=== PATIENT | female | born 1980 | race Caucasian/White ===

== ENCOUNTER 2018-06-21 17:16 | Emergency (ER) | payer OTHER ==
[2018-06-21] MEDS ORDERED: methylPREDNISolone ACETATE 80 MG/ML VIAL IM ONE (18:01)
[2018-06-21 18:21] VITALS: BP 133/78
[2018-06-21 22:11] LABS: APPEARANCE,URINE CLEAR (CLEAR); COLOR,URINE YELLOW (YELLOW); OCCULT BLOOD,URINE NEGATIVE (NEGATIVE); UROBILINOGEN URINE 0.2 Eu (0.2-1.0)
[2018-06-22 11:37] LABS: CANNABINOIDS NEGATIVE ng/mL (< 50); METHYLENEDIOXYMETHAMPHETAMINE NEGATIVE ng/mL (<500)
--- NOTE | 2018-07-08 16:01 | ED Physician Documentation ---
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 Denies loss of bowel or bladder, denies injury, fall or heavy lifting.) - ROS CONST: no problems EYES/ENT: none CVS/RESP: none GI/: none MS/SKIN/LYMPH: none NEURO/PSYCH: denies: headache - PAST HX Past History: none Allergies/Adverse Reactions: Allergies Allergy/AdvReac Type Severity Reaction Status Date / Time clindamycin Allergy Verified 06/21/18 17:34 ketorolac [From Toradol] Allergy Verified 06/21/18 17:34 Penicillins Allergy Verified 06/21/18 17:34 tramadol Allergy Verified 06/21/18 17:34 Home Medications: Ambulatory Orders Medication Instructions Recorded Alprazolam [Xanax] 0.25 mg PO 06/21/18 Methylprednisolone [Medrol] 4 mg PO DAILY #1 tab.ds.pk 06/21/18 - SOCIAL HX Smoking History: cigarettes - FAMILY HX Family History: No - VITAL SIGNS Vital Signs: Vital Signs Temp Pulse Resp BP Pulse Ox 98.1 F 90 16 133/78 98 06/21/18 17:21 06/21/18 18:19 06/21/18 18:19 06/21/18 18:19 06/21/18 18:19 - REVIEWED ASSESSMENTS Nursing Assessment Reviewed: Yes Vitals Reviewed: Yes ED Results Lab/Radiology - Lab Results Lab Results: Lab Results 06/21/18 06/21/18 06/21/18 17:40 17:40 17:40 Urine Color Yellow (YELLOW) Urine Appearance Clear (CLEAR) Urine pH 7.0 (5.0 - 8.0) Ur Specific [place] 1.020 (1.010-1.030) Urine Protein Negative mg/dL mg/dL (NEGATIVE) Urine Ketones Negative mg/dL mg/dL (NEGATIVE) Urine Occult Blood Negative (NEGATIVE) Urine Nitrite Negative (NEGATIVE) Urine Bilirubin Negative (NEGATIVE) Urine Urobilinogen 0.2 Eu Eu (0.2-1.0) Ur Leukocyte Esterase Negative (NEGATIVE) Urine Glucose Negative mg/dL mg/dL (NEGATIVE) Opiates Screen Negative ng/mL ng/mL (<300) Oxycodone Screen Negative ng/mL ng/mL (<100) Methadone Screen Negative ng/mL ng/mL (<200) Ur Barbiturates Screen Negative ng.mL ng.mL (<200) Tricyclic Antidepress Negative ng/mL ng/mL (<300) Phencyclidine Screen Non negative ng/mL H ng/mL (< 25) Amphetamines Screen Negative ng/mL ng/mL (<500) Amphetamines >1000 ng/mL H ng/mL (<100) Methamphetamine >1000 ng/mL H ng/mL (<100) U Methamphetamines Scrn Non negative ng/mL H ng/mL (<500) MDMA Negative ng/mL ng/mL Negative ng/mL ng/mL (<50) (<500) Methylphenidate Negative ng/mL ng/mL (<50) Phentermine Negative ng/mL ng/mL (<50) Alprazolam 71 ng/mL H ng/mL (<20) Hydroxyalprazolam Lvl 157 ng/mL H ng/mL (<40) Benzodiazepines Screen Non negative ng/mL H ng/mL (<150) U 7-Aminoclonazepam Screen Negative ng/mL ng/mL (<100) Diazepam Negative ng/mL ng/mL (<20) Nordiazepam Negative ng/mL ng/mL (<40) Lorazepam Negative ng/mL ng/mL (<50) Urine Temazepam Negative ng/mL ng/mL (<50) Urine Cocaine Screen Negative ng/mL ng/mL (<150) U Cannabinoids Screen Negative ng/mL ng/mL (< 50) - Orders Orders: ED Orders Category Date Time Status AMPHETAMINES,QUANT,URINE Stat Lab 06/21/18 17:40 Completed BENZODIAZEPINES, QUANT, URINE Stat Lab 06/21/18 17:40 Completed UA MACRO DIP ONLY Routine Lab 06/21/18 17:40 Completed Urine drug screen [DRUG SCREEN URINE MEDICAL ONLY] Stat Lab 06/21/18 17:40 Completed methylPREDNISolone ACETATE [Depo-Medrol] Med 06/21/18 18:01 Discontinued 80 mg IM NOW ONE General Adult Physical Exam - PHYSICAL EXAM GENERAL APPEARANCE: [id number] N EENT: eye inspection normal RESPIRATORY: no resp distress, chest non-tender, breath sounds normal CVS: reg rate & rhythm, heart sounds normal, equal pulses, no murmur, no gallop, PMI nml, no JVD, no friction rub, 24 BACK: normal inspection, no CVA tenderness, other (left lumbar paraspinous muscles tender to palpation) SKIN: normal color, warm/dry, NR, INT, PAL, DR EXTREMITIES: non-tender, normal range of motion, no evidence of injury, no edema, J, [employer] NEURO: oriented X3, CN's nml as tested, motor nml, sensation nml, mood/affect nml Discharge Clincal Impression: Sciatica Qualifiers: Laterality: left Qualified Code(s): M54.32 - Sciatica, left side Prescriptions: Methylprednisolone [Medrol] 4 mg PO DAILY #1 tab.ds.pk Referrals: Primary Doctor,No [Primary Care Provider] - 2 Days Additional Instructions: See discharge paperwork. Condition: Stable Disposition: HOME, SELF-CARE Decision to Admit: NO Decision Time: 16:01
== END 2018-06-21 18:19 | disposition home or self-care (01) ==
LOC: ED 17:16
DX: M54.32 Sciatica, left side (principal)
CPT/HCPCS: 80377; 81002; 96372; 99282; 99283; J1040; G0481